=== PATIENT | male | born 1965 | race Two or more races ===

== ENCOUNTER 2020-09-07 01:39 | Emergency (ER) | payer OTHER, SELFPAY ==
[~2020-09-07] VITALS: Ht 170.2 cm; Wt 75.0 kg
[2020-09-07] MEDS ORDERED: ALBUTEROL 6.7GM HFA INHALER ORI ONE (02:30)
[2020-09-07] MEDS ORDERED: KETOROLAC 15MG/ML VIAL IV ONE (02:45)
[2020-09-07 04:56] LABS: BASOPHILS % 0.6 % (0.0-2.0); EOSINOPHILS % 3.5 % (0.0-5.0); HEMATOCRIT. 45.6 % (42.0-52.0); HEMOGLOBIN. 15.7 g/dL (14.0-18.0); LYMPHOCYTES % 36.2 % (20.0-50.0); MEAN CORPUSCULAR HEMOGLOBIN 31.9 pg (28.0-32.0); MEAN CORPUSCULAR VOLUME 92.7 fL (80.0-94.0); MONOCYTES % 7.3 % (2.0-8.0); NEUTROPHILS % 52.4 % (40.0-76.0); PLATELET 199 x1000/uL (130-400); RED BLOOD CELL COUNT 4.92 mill/uL (4.7-6.1); RED CELL DISTRIBUTION WIDTH 13.2 % (11.6-14.6)
[2020-09-07 05:04] LABS: CHLORIDE 102 mEq/L (98-107)
== END 2020-09-07 09:36 | disposition home or self-care (01) ==
LOC: ER 01:39
DX: J40 Bronchitis, not specified as acute or chronic (principal); R07.89 Other chest pain; J43.9 Emphysema, unspecified; E11.9 Type 2 diabetes mellitus without complications; E78.00 Pure hypercholesterolemia, unspecified; I10 Essential (primary) hypertension; F17.290 Nicotine dependence, other tobacco product, uncomplicated; Z20.828 Contact with and (suspected) exposure to other viral communicable diseases
CPT/HCPCS: 36415; 71045; 80053; 84484; 85025; 87040; 87635; 93005; 96374; 99285; J1885